=== PATIENT | male | born 1965 | race Caucasian/White ===

== ENCOUNTER 2025-09-13 07:47 | Outpatient (CLI) | payer OTHER, SELFPAY | END 2025-09-13 07:48 | disposition home or self-care (01) | LOC: BICCT 07:47 | PROVIDERS: ATTEND Family Medicine | DX: Z13.6 Encounter for screening for cardiovascular disorders (principal); E78.5 Hyperlipidemia, unspecified | CPT/HCPCS: 75571 ==